=== PATIENT | female | born 1985 | race Caucasian/White ===

== ENCOUNTER 2024-11-07 18:48 | Emergency (ER) | payer MEDICAID ==
[~2024-11-07] VITALS: Ht 172.7 cm; Wt 53.5 kg
[2024-11-07] MEDS ORDERED: KETOROLAC TROMETHAMINE INJ 30 MG/ML VIAL ONE (20:22)
[2024-11-07] MEDS ORDERED: ACETAMINOPHEN ES 500 MG TABLET ONE (20:23)
[2024-11-07] MEDS ORDERED: ACET325C7 PO (20:30)
[2024-11-07] MEDS ORDERED: METH-649 PO (20:30)
[2024-11-07] MEDS ORDERED: IBUP-1490 PO (20:30)
[2024-11-07] MEDS: KETOROLAC TROMETHAMINE INJ 30 MG/ML VIAL IM ONE (20:37)
[2024-11-07] MEDS: ACETAMINOPHEN ES 500 MG TABLET PO ONE (20:37)
[2024-11-07 21:45] VITALS: BP 122/66; TEMP 98.1; O2SAT 98
== END 2024-11-07 21:46 | disposition home or self-care (01) ==
LOC: ER 18:56
DX: R10.32 Left lower quadrant pain (principal); M79.89 Other specified soft tissue disorders; M25.562 Pain in left knee; F17.200 Nicotine dependence, unspecified, uncomplicated; J45.909 Unspecified asthma, uncomplicated
CPT/HCPCS: 99285; 93971; 96372; J1885